=== PATIENT | female | born 1965 | race Asian ===

== ENCOUNTER → 2017-09-18 | Day surgery (SDC) | payer BC ==
[~2017-09-18] MED LIST: LIDOCAINE 2% INJ 100 MG/5 ML SDV (FOR ANES.) As Ordered; PROPOFOL 200 MG/20 ML VIAL As Ordered
[2017-09-18] MEDS: NS 1,000 ML IV (11:48)
== END | disposition home or self-care (01) ==
LOC: M OPP 11:01
DX: Z12.11 Encounter for screening for malignant neoplasm of colon (principal); K64.0 First degree hemorrhoids; C18.9 Malignant neoplasm of colon, unspecified; E03.9 Hypothyroidism, unspecified; E78.00 Pure hypercholesterolemia, unspecified; Z79.899 Other long term (current) drug therapy; J30.2 Other seasonal allergic rhinitis; Z82.49 Family history of ischemic heart disease and other diseases of the circulatory system
CPT/HCPCS: 45385

== ENCOUNTER 2017-10-01 12:23 | Day surgery (SDC) | payer BC ==
[2017-10-01] MEDS: NS 1,000 ML IV (13:15)
[2017-10-01] MEDS ORDERED: PROPOFOL 200 MG/20 ML VIAL As Ordered (13:26)
== END 2017-10-01 14:42 | disposition home or self-care (01) ==
LOC: M SDC 12:23
DX: D12.6 Benign neoplasm of colon, unspecified (principal); Z86.03 Personal history of neoplasm of uncertain behavior; Z86.008 Personal history of in-situ neoplasm of other site
CPT/HCPCS: 45380

== ENCOUNTER → 2022-01-16 | Outpatient (CLI) | payer BC, SELFPAY ==
[~2022-01-16] MED LIST changes: +LEVO50TA5 PO; -LIDOCAINE 2% INJ 100 MG/5 ML SDV (FOR ANES.) As Ordered; -PROPOFOL 200 MG/20 ML VIAL As Ordered; +ROSU20TA5 PO; +VENTAER INH
== END ==
LOC: M WHC 08:49
PROVIDERS: ATTEND Nurse Practitioner Family
DX: E03.9 Hypothyroidism, unspecified (principal); E04.1 Nontoxic single thyroid nodule